=== PATIENT | female | born 1970 | race Caucasian/White ===

== ENCOUNTER 2018-05-22 16:06 | Emergency (ER) | END 2018-05-22 17:25 | disposition home or self-care (01) ==

== ENCOUNTER 2018-10-15 22:17 | Emergency (ER) | payer OTHER ==
[~2018-10-15] VITALS: Ht 154.9 cm; Wt 59.1 kg
[~2018-10-15 22:17] MED LIST: ALBU18HF INHALATION; AZIT250T PO; BENZ200C68 PO; MED4DP PO
[2018-10-15 22:19] VITALS: Ht 154.9 cm; Wt 59.1 kg
--- NOTE | 2018-10-15 23:03 | ERD ---
ER Documentation Chief Complaint Chief Complaint Multiple complaints HPI The patient is a 48-year-old female, presenting to the ER because she woke up around 8 PM, did not feel well, complaint of chest tightness, and left lower back pain and vomited of mostly mucus. She is currently taking Archer for the last 2 days for her dental pain, denies fever, chills, neck pain, chest pain with vomiting/radiation/exertion/diaphoresis, complains of lower abdominal pain, denies dysuria, diarrhea. She smokes, denies drinking or using illicit drug, LMP was a week ago. 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 Medications Home Meds Active Scripts Ibuprofen* (Motrin*) 600 Mg Tab, 600 MG PO Q6H PRN for PAIN AND OR ELEVATED TEMP, #20 TAB Prov:ANALI ARCOS MD 10/16/18 Azithromycin* (Zithromax*) 250 Mg Tablet, 250 MG PO .ZPACK DIRECTED, #6 TAB TAKE 500 MG (2 TABS) THE FIRST DAY THEN 250 MG (1 TAB) DAYS 2-5 Prov:ANALI ARCOS MD 10/16/18 Ibuprofen* (Motrin*) 600 Mg Tab, 600 MG PO Q6H PRN for PAIN AND OR ELEVATED TEMP, #20 TAB Prov:ANALI ARCOS MD 10/16/18 Azithromycin* (Zithromax*) 250 Mg Tablet, 250 MG PO .ZPACK DIRECTED, #6 TAB TAKE 500 MG (2 TABS) THE FIRST DAY THEN 250 MG (1 TAB) DAYS 2-5 Prov:ANALI ARCOS MD 10/16/18 Reported Medications Acetaminophen* (Acetaminophen*) 500 MG Extra Strength Tablet, 500 MG PO Q4H PRN for PAIN AND OR ELEVATED TEMP, TAB 10/15/18 Discontinued Scripts Benzonatate* (Benzonatate*) 200 Mg Capsule, 200 MG PO TID PRN for COUGH, #20 CAP Prov:ALMAZ DAMIAN PA-C 05/22/18 Albuterol Sulfate* (Ventolin HFA*) 18 Gm Hfa.aer.ad, 2 PUFF INHALATION Q4H, #1 INHALER Prov:ALMAZ DAMIAN PA-C 05/22/18 Methylprednisolone* (Medrol* DOSE PACK) 4 Mg/Dose-Pack Tab.ds.pk, 4 MG PO . DIRECTED, #1 PACKET Prov:ALMAZ DAMIAN PA-C 05/22/18 Azithromycin* (Zithromax*) 250 Mg Tablet, 250 MG PO .ZPACK DIRECTED, #6 TAB TAKE 500 MG (2 TABS) THE FIRST DAY THEN 250 MG (1 TAB) DAYS 2-5 Prov:ALMAZ DAMIAN PA-C 05/22/18 Allergies Allergies: Coded Allergies: No Known Allergy (Unverified , 10/15/18) PMhx/Soc Hx Alcohol Use: No Hx Substance Use: No Hx Tobacco Use: No Physical Exam Vitals Vital Signs Date Temp Pulse Resp B/P (MAP) Pulse Ox O2 O2 Flow FiO2 Time Delivery Rate 10/16/18 98.8 86 18 128/95 98 Room Air 05:22 (106) 10/16/18 97.8 86 16 107/69 100 Room Air 02:22 (82) 10/16/18 88 23 109/65 97 Room Air 00:31 (80) 10/16/18 100.5 00:00 10/15/18 100.7 101 22 130/65 100 22:19 (86) Physical Exam Const: No acute distress. Head: Atraumatic. Eyes: Normal Conjunctiva. ENT: Normal External Ears, Nose and Mouth. Neck: Full range of motion. No meningismus. Resp: Clear to auscultation bilaterally. Cardio: Regular rate and rhythm. Abd: Soft, non distended, normal bowel sounds, vague and mild lower abdominal discomfort, no rigidity/rebound/CVA tenderness Skin: No petechiae or rashes. Back: No midline or flank tenderness. Ext: No cyanosis, or edema. Neur: Awake and alert. No focal deficit Psych: Anxious Result Diagram: 10/15/18 2333 10/15/18 2333 Results 24 hrs Laboratory Tests Test 10/15/18 23:15 10/15/18 23:23 10/15/18 23:24 10/15/18 23:33 Urine Opiates Positive Screen Urine Barbiturates Negative Urine Amphetamines Negative Screen Urine Negative Benzodiazepines Screen Urine Cocaine Negative Screen Urine Cannabinoids Negative Bedside Urine pH 6.0 (LAB) Bedside Urine Negative Protein (LAB) Bedside Urine Negative Glucose (UA) Bedside Urine Negative Ketones (LAB) Bedside Urine Blood Negative Bedside Urine Negative Nitrite (LAB) Bedside Urine Negative Leukocyte Esterase (L POC Beta HCG, NEGATIVE Qualitative White Blood Count 9.8 10^3/ul Red Blood Count 5.16 10^6/ul Hemoglobin 10.8 g/dl Hematocrit 33.5 % Mean Corpuscular 64.9 fl Volume Mean Corpuscular 20.9 pg Hemoglobin Mean Corpuscular 32.2 g/dl Hemoglobin Concent Red Cell 15.3 % Distribution Width Platelet Count 382 10^3/UL Mean Platelet 9.1 fl Volume Immature 0.700 % Granulocytes % Neutrophils % 85.2 % Lymphocytes % 4.9 % Monocytes % 8.7 % Eosinophils % 0.1 % Basophils % 0.4 % Nucleated Red Blood 0.0 /100WBC Cells % Immature 0.070 10^3/ul Granulocytes # Neutrophils # 8.3 10^3/ul Lymphocytes # 0.5 10^3/ul Monocytes # 0.9 10^3/ul Eosinophils # 0.0 10^3/ul Basophils # 0.0 10^3/ul Nucleated Red Blood 0.0 10^3/ul Cells # Sodium Level 135 mmol/L Potassium Level 4.2 mmol/L Chloride Level 103 mmol/L Carbon Dioxide 23 mmol/L Level Anion Gap 9 Blood Urea Nitrogen 11 mg/dl Creatinine 0.94 mg/dl Est Glomerular > 60 mL/min Filtrat Rate mL/min Glucose Level 102 mg/dl Calcium Level 9.5 mg/dl Total Bilirubin 0.6 mg/dl Direct Bilirubin 0.00 mg/dl Indirect Bilirubin 0.6 mg/dl Aspartate Amino 20 IU/L Transf (AST/SGOT) Alanine 17 IU/L Aminotransferase (A LT/SGPT) Alkaline 75 IU/L Phosphatase Total Protein 7.2 g/dl Albumin 4.0 g/dl Globulin 3.20 g/dl Albumin/Globulin 1.25 Ratio Lipase 36 U/L Ethyl Alcohol Level < 10.0 mg/dl Current Medications Medications Dose Sig/Brit Start Time Status Last (Trade) Ordered Route PRN Stop Time Admin Dose Reason Admin Sodium 1,000 ml @ Q1H ONCE 10/15/18 DC 10/15/18 Chloride 1,000 mls/hr IV 23:30 23:37 10/16/18 00:29 Ketorolac 30 mg ONCE STAT 10/15/18 DC 10/15/18 Tromethamine IV 23:16 23:38 (Toradol) 10/15/18 23:22 650 mg ONCE ONCE 10/15/18 DC 10/15/18 Acetaminophen PO 23:30 23:38 (Tylenol 10/15/18 23:31 Tab) Procedures/[place] [id number] Radiology Main Line: [phone] DIAGNOSTIC IMAGING REPORT Patient: SADIQ ROSAS : 1970 Age: 48 Sex: F MR #: [id number] DOS: 10/15/18 2316 Ordering MD: ANALI ARCOS MD Location: E/R Room/Bed: PROCEDURE: DX Chest 1 View CLINICAL INDICATION: Cough. TECHNIQUE: AP Portable chest. COMPARISON: None FINDINGS: Normal cardiac and mediastinal configuration. Aortic calcified plaque absent. No CHF or hilar enlargement. Slight right upper lobe peribronchial thickening. To small faintly calcified nodule lateral mid left lung, probable granulomas. Faint increased interstitial markings at the left lung base. No alveolar consolidation or pleural effusion. IMPRESSION: 1. Prior granulomatous disease. 2. Grid related artifact versus faint left lower lobe interstitial pneumonia. RPTAT: [facility] Physician Anika Date Time Electronically viewed and signed by Physician Anika on 10/16/2018 01:46 RS/ CC: ANALI ARCOS MD [id number] MEDICAL MAKING DECISION: The patient is a 48-year-old female, presenting with suspected pneumonia, acute viral syndrome. She was treated with 1 L normal saline for clinical dehydration, Toradol 30 mg IV and Tylenol for her pain with good response, is stable for outpatient follow-up The differential diagnoses considered include but are not limited to pneumonia, bronchitis, UTI, pyelonephritis Departure Diagnosis: Primary Impression: PNA (pneumonia) Additional Impressions: Viral syndrome Anemia Condition: Good Comments She was discharged with Zithromax and Motrin I discussed the findings with the patient. I advised the patient to follow-up with the primary physician in about 2-3 days, sooner if needed and return if any concern. Disclaimer: Inadvertent spelling and grammatical errors are likely due to EHR/dictation software use and do not reflect on the overall quality of patient care. Also, please note that the electronic time recorded on this note does not necessarily reflect the actual time of the patient encounter. ANALI ARCOS MD Oct 15, 2018 23:03
[2018-10-15] MEDS ORDERED: KETOROLAC 30 MG INJ IV STA (23:16)
[2018-10-15] MEDS ORDERED: SOD CHLORIDE 0.9% 1,000 ML IV ONE (23:30)
[2018-10-15] MEDS ORDERED: ACETAMINOPHEN 325 MG TAB PO ONE (23:30)
[2018-10-15] MEDS ORDERED: ACET-141 PO (23:57)
[2018-10-16] MEDS ORDERED: AZIT250T PO ×2 (05:01→05:09)
[2018-10-16] MEDS ORDERED: IBUP-1542 PO ×2 (05:02→05:10)
[2018-10-16 05:22] VITALS: BP 128/95; PULSE 86; RESP 18
== END 2018-10-16 05:23 | disposition home or self-care (01) ==
LOC: E/R 22:17
DX: J18.9 Pneumonia, unspecified organism (principal); B34.9 Viral infection, unspecified; D64.9 Anemia, unspecified
CPT/HCPCS: 36415; 71045; 80053; 80307; 81003; 81025; 83690; 85025; 87400; 93005; 96374; J1885; J7030; Z7502; Z7610